=== PATIENT | male | born 1995 | race Caucasian/White ===

== ENCOUNTER 2018-10-08 21:05 | Inpatient (IN) | payer MEDICAID ==
[~2018-10-08] VITALS: Ht 170.2 cm; Wt 68.8 kg
--- NOTE | 2018-10-08 21:18 | NUR ---
Dr. Poon at bedside to evaluate pt. Pt on all monitors, afib noted on compliance monitor. Pt states that he was feeling normal until after dinner tonight and then he began feeling light headed and dizzy. Pt states that he fell to the floor, denies LOC, denies hitting his head.
[2018-10-08] MEDS ORDERED: ASPIRIN 81 MG TABLET CHEW PO ONE (21:30)
[2018-10-08] MEDS ORDERED: ONDANSETRON ODT 4 MG PO ONE (21:30)
[2018-10-08 21:49] LABS: BASOPHILS # (AUTO) 0.03 x10^3/uL (0-0.1); BASOPHILS % (AUTO) 0 % (0-1); EOSINOPHILS % (AUTO) 3 % (1-7); LYMPHOCYTES # (AUTO) 1.92 x10^3/uL (1-3.4); LYMPHOCYTES % (AUTO) 30 % (22-44); MD NO; MEAN CORPUSCULAR HEMOGLOBIN 30.4 pg (27.5-34.5); MEAN CORPUSCULAR HGB CONC 34.7 g/dL (33.2-36.2); MEAN CORPUSCULAR VOLUME 87.8 fL (81-97); MEAN PLATELET VOLUME 8.3 fL (7.4-10.4); MONOCYTES # (AUTO) 0.46 x10^3/uL (0.2-0.8); MONOCYTES % (AUTO) 7 % (2-9); NEUTROPHILS % (AUTO) 59 % (42-75); PLATELET COUNT 229 x10^3/uL (130-400); RED BLOOD COUNT 5.16 x10^6/uL (4.38-5.82); RED CELL DISTRIBUTION WIDTH 13.4 % (9.4-14.8)
[2018-10-08] MEDS ORDERED: ONDANSETRON ODT 4 MG ONE (21:51)
[2018-10-08] MEDS ORDERED: ASPIRIN 81 MG TABLET CHEW ONE (21:52)
[2018-10-08 21:58] LABS: ALBUMIN 4.5 g/dL (3.4-5.0); ANION GAP 6 mmol/L (5-15); CALCIUM 8.8 mg/dL (8.5-10.1); CHLORIDE 111 mmol/L (98-107); CREATININE 0.93 mg/dL (0.7-1.3)
[2018-10-08 22:02] LABS: T4 (THYROXINE) 6.5 mcg/dL (4.5-12.1); TROPONIN I < 0.015 ng/mL (0.000-0.045)
--- NOTE | 2018-10-08 22:10 | NUR ---
Pt medicated per MAR.
--- NOTE | 2018-10-08 22:18 | NUR ---
Dr. Poon at bedside to discuss ED findings and POC.
--- NOTE | 2018-10-08 22:23 | NUR ---
Pt ambulated to bathroom, no assistance required. Pt aware of plan to be admitted.
--- NOTE | 2018-10-08 22:39 | NUR ---
PIV started, pt aware of plan to be admitted.
[2018-10-08] MEDS ORDERED: hydrALAzine 20 MG/ML, 1ML IVPush PRN (23:00)
[2018-10-08] MEDS ORDERED: ONDANSETRON 2MG/ML, 2ML IVPush PRN (23:00)
[2018-10-08] MEDS ORDERED: POLYETHYLENE GLYCOL 17 GM PACKET PO PRN (23:00)
[2018-10-08] MEDS ORDERED: ACETAMINOPHEN 325 MG TABLET PO PRN (23:00)
--- NOTE | 2018-10-08 23:16 | NUR ---
Telephone SBAR report called to [facility]. Pt made aware of new room assignment. Pt's is in L&D and requested to be called upon disposition decision and with any updates, per pt it is ok to call his . Pt's called and updated by this RN.
[2018-10-08 23:31] VITALS: BP 152/83
[2018-10-08] MEDS ORDERED: CEPH-376 PO (23:35)
[2018-10-08 23:50] VITALS: BP 152/83
[2018-10-08 23:55] LABS: TROPONIN I < 0.015 ng/mL (0.000-0.045)
[2018-10-09 00:14] LABS: PROTHROMBIN TIME 10.5 Seconds (9.6-11.5)
[2018-10-09] MEDS: CEPHALEXIN 500 MG CAPSULE HOMEMEDPO SCH ×3 (00:21→20:31)
[2018-10-09] MEDS: ENOXAPARIN 60 MG/0.6 ML SQ SCH ×2 (00:21→16:35)
[2018-10-09] MEDS ORDERED: CEPHALEXIN 500 MG CAPSULE PO SCH (00:30)
[2018-10-09 03:12] VITALS: BP 100/65
[2018-10-09 06:20] LABS: BASOPHILS # (AUTO) 0.04 x10^3/uL (0-0.1); BASOPHILS % (AUTO) 1 % (0-1); EOSINOPHILS % (AUTO) 3 % (1-7); LYMPHOCYTES # (AUTO) 2.35 x10^3/uL (1-3.4); LYMPHOCYTES % (AUTO) 31 % (22-44); MD NO; MEAN CORPUSCULAR HEMOGLOBIN 29.5 pg (27.5-34.5); MEAN CORPUSCULAR HGB CONC 33.7 g/dL (33.2-36.2); MEAN CORPUSCULAR VOLUME 87.6 fL (81-97); MEAN PLATELET VOLUME 8.5 fL (7.4-10.4); MONOCYTES # (AUTO) 0.57 x10^3/uL (0.2-0.8); MONOCYTES % (AUTO) 7 % (2-9); NEUTROPHILS # (AUTO) 4.48 x10^3/uL (1.8-6.8); NEUTROPHILS % (AUTO) 59 % (42-75); PLATELET COUNT 219 x10^3/uL (130-400); RED BLOOD COUNT 5.37 x10^6/uL (4.38-5.82); RED CELL DISTRIBUTION WIDTH 13.2 % (9.4-14.8)
[2018-10-09 06:30] LABS: CHLORIDE 110 mmol/L (98-107)
[2018-10-09 06:44] LABS: ALANINE AMINOTRANSFERASE 25 U/L (12-78); ALBUMIN 4.4 g/dL (3.4-5.0); ALKALINE PHOSPHATASE 69 U/L (45-117); ANION GAP 7 mmol/L (5-15); BILIRUBIN,TOTAL 0.5 mg/dL (0.2-1.0); CALCIUM 9.1 mg/dL (8.5-10.1); CREATININE 0.97 mg/dL (0.7-1.3); TOTAL PROTEIN 7.5 g/dL (6.4-8.2); TROPONIN I < 0.015 ng/mL (0.000-0.045)
[2018-10-09 07:30] VITALS: BP 122/74
[2018-10-09] MEDS ORDERED: SODIUM CHLORIDE 0.9% 1,000 ML IV SCH (09:00)
[2018-10-09] MEDS: METOPROLOL TARTRATE 25 MG TABLET PO SCH ×2 (09:00→20:36)
[2018-10-09 12:04] VITALS: BP_SYST 126; BP_SYST 133; BP_DIAS 73; BP_DIAS 83
[2018-10-09 14:10] VITALS: BP 137/86
[2018-10-09 20:26] VITALS: BP 131/85
[2018-10-10 01:16] VITALS: BP 115/70
[2018-10-10] MEDS: ENOXAPARIN 60 MG/0.6 ML SQ SCH (04:51)
[2018-10-10 06:02] LABS: CHLORIDE 110 mmol/L (98-107)
[2018-10-10 06:21] LABS: ANION GAP 6 mmol/L (5-15); CALCIUM 9.2 mg/dL (8.5-10.1); CREATININE 0.96 mg/dL (0.7-1.3)
[2018-10-10 07:23] VITALS: BP 129/73
[2018-10-10] MEDS: METOPROLOL TARTRATE 25 MG TABLET PO SCH (09:20)
[2018-10-10] MEDS: CEPHALEXIN 500 MG CAPSULE HOMEMEDPO SCH (09:20)
[2018-10-10] MEDS ORDERED: FLECAINIDE 50MG TABLET PO SCH (12:00)
[2018-10-10 13:01] VITALS: BP 123/73
[2018-10-10] MEDS ORDERED: FLEC50TA25 PO (14:06)
== END 2018-10-10 15:52 | disposition home or self-care (01) | DRG 310 ==
LOC: ED 22:09 → EDIP 23:01 → 5SO 23:26 → DCLOUNGE 10-10 15:30
PROVIDERS: ADMIT Family Medicine; ATTEND Family Medicine
DX: I48.0 Paroxysmal atrial fibrillation (principal); I49.3 Ventricular premature depolarization; R56.9 Unspecified convulsions; Z82.49 Family history of ischemic heart disease and other diseases of the circulatory system
CPT/HCPCS: 36415; 70450; 71045; 80048; 80053; 82040; 83735; 83880; 84436; 84443; 84484; 85025; 85379; 85610; 93005; 93306; 93880; 99285; G0378; J1650; Q0162; J7030

== ENCOUNTER → 2019-08-18 | Outpatient (CLI) | payer OTHER, MEDICAID ==
[~2019-08-18] MED LIST: CEPH-376 PO; FLEC50TA25 PO
== END | disposition home or self-care (01) ==
LOC: CARD 08:48
PROVIDERS: ATTEND Nurse Practitioner Family
DX: R56.9 Unspecified convulsions (principal)
CPT/HCPCS: 95819